=== PATIENT | female | born 1990 | race Caucasian/White ===

== ENCOUNTER 2021-06-18 12:58 | Outpatient (REF) | payer SELFPAY ==
[2021-06-18 13:32] LABS: Binax Internal Control QC Valid; Binax Lot number: 9864; Binax Now Covid-19 Ag Positive (Negative)
== END 2021-06-18 12:59 | disposition home or self-care (01) ==
LOC: HO.LAB 12:58
PROVIDERS: Visit Provider Internal Medicine
DX: Z20.822 Contact with and (suspected) exposure to COVID-19 (principal)
CPT/HCPCS: C9803

== ENCOUNTER 2021-09-07 12:39 | Outpatient (REF) | payer OTHER, SELFPAY ==
--- NOTE | ~2021-09-07 | XR_ITS ---
EXAMINATION: XR CALCANEUS, LEFT CLINICAL INFORMATION: Plantar fascial fibromatosis. COMPARISON: None TECHNIQUE: Lateral and axial views of the left calcaneus were obtained. FINDINGS: There is large calcaneal heel and small retrocalcaneal enthesophytes. The ankle mortise and subtalar joints are normal. The soft tissues are unremarkable. XR/XR calcaneus LT min 2V IMPRESSION: Large calcaneal heel and a small retrocalcaneal enthesophytes.
== END 2021-09-07 12:40 | disposition home or self-care (01) ==
LOC: HO.HMGCX 12:39
PROVIDERS: Visit Provider Internal Medicine
DX: M72.2 Plantar fascial fibromatosis (principal)
CPT/HCPCS: 73650

== ENCOUNTER 2023-02-15 17:45 | Emergency (ER) | payer OTHER, SELFPAY ==
[2023-02-15 17:48] VITALS: BP 142/85; PULSE 119; RESP 20; TEMP 37.7; O2SAT 97; BMI 39.5
--- NOTE | 2023-02-15 17:49 | ED_ITS ---
HPI - General Adult General Chief complaint: Allergic Reaction Stated complaint: stung by a bee, allergic. no epi pen. SOb Time Seen by Provider: 02/15/23 17:54 Source: patient, RN notes reviewed and old records reviewed Mode of arrival: ambulatory Limitations: no limitations History of Present Illness HPI narrative: 32-year-old female presents for evaluation of ?I was stung by a bee. ? 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 She does not have an EpiPen Related Data Home Medications Medication Instructions Recorded Confirmed ferrous sulfate 325 mg (65 mg 325 mg PO DAILY 09/07/21 09/07/21 iron) tablet Previous Rx's Medication Instructions Recorded meloxicam 15 mg tablet 15 mg PO DAILY #14 tabs 09/07/21 epinephrine 0.3 mg/0.3 mL 0.3 mg (0.3 mL) IM Q4H PRN 02/15/23 injection, auto-injector (EpiPen anaphylaxis #2 ea 2-[place]) prednisone 20 mg tablet 40 mg (2 x 20 mg) PO DAILY #6 tabs 02/15/23 Allergies Allergy/AdvReac Type Severity Reaction Status Date / Time bee venom protein (honey bee) Allergy Hives Verified 02/15/23 17:50 Review of Systems Constitutional: Constitutional: Denies chills and Denies fever(s) ENT: Denies throat swelling and Denies tongue swelling Cardiovascular: Cardiovascular: Denies chest pain, Reports rapid heart rate and Denies dyspnea Respiratory: Respiratory: Denies dyspnea Musculoskeletal: Musculoskeletal: Denies arthralgias and Denies joint swelling Integumentary/Breasts: Skin/Breast: Reports pruritus, Reports erythema and Reports rash Allergic/Immunologic: Allergic/Immunologic: Denies throat swelling and Denies tongue swelling PMFSH Social History Social History Advance Directives: No Advance Directives Information Provided: Yes Physical Exam ED Vital Signs: Vital Signs - 24 hr 02/15/23 17:48 Temperature 99.8 F Pulse Rate 119 H Respiratory Rate 20 Blood Pressure 142/85 H Pulse Oximetry 97 Oxygen Delivery Method Room Air BMI result Body Mass Index 39.5 Const General: healthy appearing, comfortable, no acute distress, alert and awake Nutritional Appearance: well nourished Orientation/consciousness: patient oriented x3 HENMT Other: No oral perioral or retropharyngeal edema. Head: Yes normocephalic and Yes atraumatic Throat: Yes posterior oropharynx normal Eyes Eyelids: Yes eyelids normal Conjunctivae: conjunctivae normal Sclerae: sclerae normal Corneas: corneas normal Pupils: Equal, round and reactive pupils present EOM: EOMs intact bilaterally Neck Neck: Yes full ROM Resp Effort & Inspection: normal respiratory effort, able to speak in complete sentences, no audible wheezes, not labored and no stridor Auscultation: clear to auscultation bilaterally Cardio Rate: regular rate Rhythm: regular rhythm Skin Other: Diffuse urticaria to the face, extremities, torso. General skin exam: elasticity normal Neuro General: patient oriented x3 Cranial nerves: Yes Equal, round and reactive pupils present and Yes Bilaterally intact EOM present Cognition (Neuro): normal cognition Extrem Other: Moving all extremities well without any obvious deformities Course Course Course Narrative: RME- 32 year old female presents for evaluation of itching a rash after being stung by a bee about 20mins ago. She reoprts taking two Benadryl tablets prior to coming to the ED. on exam she has an insect sting antonina the left lower extremity. She has diffuse urticaria. No oral and perioral her retropharyngeal edema, no stridor on exam. Reevaluation(s) Reevaluation #1: Patient re-evaluated. She feels better, still has diffuse urticaria. She denies any difficulty breathing or swallowing. Time: 18:25 Reevaluation #2: Patient's rash now resolving. Mild urticaria remains Time: 19:05 Reevaluation #3: Symptoms continue to improve, rash is almost completely resolved. Will discharge the patient with further prednisone and an EpiPen. Patient was educated how to use the EpiPen Time: 19:25 Medications Administered Discontinued Medications Generic Name Dose Route Start Last Admin Trade Name Freq PRN Reason Stop Dose Admin Famotidine 20 mg 02/15/23 17:50 02/15/23 17:58 Famotidine 20 Mg Tablet PO 02/15/23 17:51 20 mg ONCE ONE Administration Prednisone 60 mg 02/15/23 17:50 02/15/23 17:58 Prednisone 20 Mg Tablet PO 02/15/23 17:51 60 mg ONCE ONE Administration Medical Decision Making Medical Decision Making [facility] Narrative: 29-year-old female presents for evaluation of allergic reaction. She has an urticarial rash after being stung by a bee. During take Benadryl 50 mg orally at home. Will add on prednisone 60 mg p.o. and Pepcid 20 mg p.o.. There is no evidence of airway compromise. She does not describe any shortness of breath or throat swelling sensation. Will observe the patient closely, but she does not require EpiPen at this time. Differential Diagnosis Differential Diagnoses: The differential diagnosis associated with the presentation includes Urticaria Allergic reaction Anaphylaxis Acute dermatitis Discharge Plan Discharge Clinical Impression: Urticaria Patient Disposition: Home, Self-Care Instructions: Urticaria (ED) Additional Instructions: You may continue to use Benadryl every 4-6 hours as needed for itching and rash. Take prednisone 40 mg daily for the next 3 days Use the EpiPen if you ever have any additional allergic reactions that lead to throat swelling, difficulty breathing or swallowing Return for new or worsening symptoms Prescriptions: New prednisone 20 mg tablet 40 mg PO DAILY Qty: 6 0RF epinephrine [EpiPen 2-[place]] 0.3 mg/0.3 mL auto-injector 0.3 mg IM Q4H PRN (Reason: anaphylaxis) Qty: 2 0RF No Action ferrous sulfate 325 mg (65 mg iron) tablet 325 mg PO DAILY meloxicam 15 mg tablet 15 mg PO DAILY Qty: 14 0RF
[2023-02-15] MEDS: predniSONE 20 MG TABLET 60 MG PO (17:58)
[2023-02-15] MEDS: Famotidine 20 MG TABLET PO (17:58)
== END 2023-02-15 19:40 | disposition home or self-care (01) ==
DX: L50.0 Allergic urticaria (principal)
CPT/HCPCS: 99282; 99283